=== PATIENT | female | born 1995 | race Caucasian/White ===

== ENCOUNTER 2023-08-05 03:41 | Inpatient (IN) ==
[2023-08-05] MEDS ORDERED: Lidocaine 1% VIAL 10 MG/ML 30 ML VIAL INJ PRN (05:19)
[2023-08-05 07:04] LABS: ABS Eosinophils 0.1 10^3/uL (0.0-0.5); ABS Lymphocytes 1.4 10^3/uL (1.0-4.8); ABS Monocytes 0.5 10^3/uL (0.0-0.9); ABS Neutrophils 8.2 10^3/uL (1.5-7.6); Eosinophil % 0.6 %; Hematocrit 38.2 % (35-45); Hemoglobin 13.3 g/dL (11.5-14.3); Lymphocyte % 13.6 %; Mean Corpuscular Hemoglobin 32.4 pg (27-33); Mean Corpuscular Hgb Conc 34.9 g/dL (31-36); Mean Corpuscular Volume 92.7 fL (80-97); Mean Platelet Volume 10.1 fL (7.5-11.2); Platelet Count 167 10^3/uL (150-450); Red Blood Count 4.12 10^6/uL (3.63-4.92); Red Cell Distribution Width 12.8 % (12-17); White Blood Count 10.2 10^3/uL (3.8-11.8)
[2023-08-05 07:21] LABS: Influenza A Molecular Negative (Negative); Influenza B Molecular Negative (Negative)
[2023-08-05] MEDS: Ondansetron 4 mg VIAL 2 MG/ML 2 ml VIAL IV PRN (08:11)
[2023-08-05] MEDS: OBEPIDURAL (200 ML) 200 ML EPIDURAL SCH (09:25)
[2023-08-05 09:52] LABS: Urine Benzodiazepine Screen None Detected (None Detect); Urine Cannabinoids Screen None Detected (None Detect); Urine Opiates Screen None Detected (None Detect)
[2023-08-05] MEDS: Lactated Ringers 1000 ml BAG 1,000 ML IV SCH (10:00)
[2023-08-05] MEDS ORDERED: Sodium Citrate/Citric Acid LIQ 15 ML UDC PO PRN (10:02)
[2023-08-05] MEDS: Lidocaine 1.5% EPI 1:200,000 30 ML SDV ONE (10:35)
[2023-08-05] MEDS: OBEPIDURAL (200 ML) 200 ML EPIDURAL ONE (10:36)
[2023-08-05] MEDS ORDERED: Lactated Ringers 1000 ml BAG 1,000 ML IV SCH (11:00)
[2023-08-05] MEDS ORDERED: Glycerin ADULT 2.4 gm SUPP PR PRN (12:09)
[2023-08-05] MEDS ORDERED: Measles, Mumps,Rubella VACC 0.5 ML/VIAL SUBCUT ONE (12:09)
[2023-08-05] MEDS: Dibucaine 1% OINT 28.35 GM TUBE PR PRN (14:12)
[2023-08-05] MEDS: Witch Hazel PAD JAR TOPICAL PRN (14:12)
[2023-08-05] MEDS: Bupivacaine 0.25% SDV PF 10 ML VIAL INJ ONE (17:59)
[2023-08-05] MEDS: Lactated Ringers 1000 ml BAG 1,000 ML IV ONE (18:00)
[2023-08-05] MEDS: fentaNYL 100 mcg/2 ml 50 MCG/ML VIAL ONE (18:00)
[2023-08-06 07:03] LABS: ABS Eosinophils 0.1 10^3/uL (0.0-0.5); ABS Lymphocytes 1.7 10^3/uL (1.0-4.8); ABS Monocytes 0.7 10^3/uL (0.0-0.9); ABS Neutrophils 6.3 10^3/uL (1.5-7.6); Hematocrit 34.6 % (35-45); Hemoglobin 12.3 g/dL (11.5-14.3); Lymphocyte % 19.3 %; Mean Corpuscular Hemoglobin 33.2 pg (27-33); Mean Corpuscular Hgb Conc 35.7 g/dL (31-36); Mean Corpuscular Volume 93.1 fL (80-97); Mean Platelet Volume 9.8 fL (7.5-11.2); Platelet Count 138 10^3/uL (150-450); Red Blood Count 3.72 10^6/uL (3.63-4.92); Red Cell Distribution Width 12.6 % (12-17); White Blood Count 8.7 10^3/uL (3.8-11.8)
[2023-08-06] MEDS: Measles, Mumps,Rubella VACC 0.5 ML/VIAL SUBCUT ONE (20:12)
[2023-08-07 08:42] VITALS: BP 114/76
== END 2023-08-07 11:05 | disposition home or self-care (01) | DRG 560 ==
LOC: MCHOBOUT 03:41 → MCHOB 05:24
PROVIDERS: ADMIT Midwife; ATTEND Midwife